=== PATIENT | male | born 1960 ===

== ENCOUNTER 2018-09-06 07:30 | Outpatient (CLI) | payer BC, OTHER ==
--- NOTE | 2018-09-06 09:45 | MRI ---
BRAIN MRI WITH AND WITHOUT CONTRAST: DATE: 09/06/2018. COMPARISON: None. HISTORY: Vertigo, left-sided tinnitus, bilateral hearing loss, left greater than right. TECHNIQUE: Multiplanar, multisequence MR imaging of the brain provided with and without contrast using a interna l auditory canal protocol. FINDINGS: The diffusion weighted imaging demonstrates no evidence for acute infarction. Regional bone marrow signal intensity is within normal limits. The paranasal sinuses and mastoid air cells demonstrate no significant opacification with minimal muc osal thickening noted involving the sphenoid sinuses. Arterial flow voids at the axial level of the skull base appear unremarkable on the T2 weighted imaging. No ventricular enlargement, midline shift, or mass effect. The thin section T2 weighted imaging demonstrates no abnormal signal intensity in the region of the C P angle, IAC, cochlea, vestibule, or semicircular canals on either side. Postcontrast imaging demonstrates no abnormal enhancement in the region of the cerebellopontine angle , internal auditory canal, cochlea, vestibule, or semicircular canals on either side. The whole brain postcontrast imaging demonstrates no abnormal enhancement. Incidental note is made of mildly prominent fluid in the optic nerve sheath bilaterally. IMPRESSION: Grossly unremarkable. Contrast-enhanced brain MRI utilizing the internal auditory canal protocol. POS: YU
== END 2018-09-06 07:31 | disposition home or self-care (01) ==
LOC: BICMRI 07:30
PROVIDERS: ATTEND Otolaryngology Plastic Surgery within the Head & Neck
DX: H93.13 Tinnitus, bilateral (principal); H90.42 Sensorineural hearing loss, unilateral, left ear, with unrestricted hearing on the contralateral side; R42 Dizziness and giddiness
CPT/HCPCS: 70553